=== PATIENT | male | born 1945 ===

== ENCOUNTER → 2017-10-02 | Outpatient (CLI) | payer MEDICARE | END | disposition home or self-care (01) | LOC: PCVCCLINIC 12:00 | DX: I25.10 Atherosclerotic heart disease of native coronary artery without angina pectoris (principal); E11.9 Type 2 diabetes mellitus without complications; R07.9 Chest pain, unspecified; I10 Essential (primary) hypertension; E78.5 Hyperlipidemia, unspecified; Z95.1 Presence of aortocoronary bypass graft; Z79.82 Long term (current) use of aspirin; Z79.84 Long term (current) use of oral hypoglycemic drugs | CPT/HCPCS: 80061; 93005; G0463 ==

== ENCOUNTER → 2017-10-29 | Outpatient (CLI) | payer MEDICARE ==
[~2017-10-29] MED LIST: REGADENOSON 0.4 MG/5 ML DISP.SYRIN. IV ONE
--- NOTE | 2017-10-29 11:16 | PCVCIMAG ---
APPROVED REPORT Study performed: 10/29/2017 08:52:53 EXAM: Comprehensive 2D, Doppler, and color-flow Echocardiogram Patient Location: Echo lab Status: routine BSA: 2.00 HR: 72 bpmBP: 124/74 mmHg Rhythm: NSR Other Information Study Quality: Good Risk Factors: Cardiac Risk Factors: HTN, Hyperlipidemia Indications CAD Chest Pain Hx CABG (2012) 2D Dimensions LVEF(%): 57.00 (>50%) IVSd: 11.09 (7-11mm)LVOT Diam: 22.00 (18-24mm) LVDd: 47.25 mm PWd: 10.90 (7-11mm)Ascending Ao: 33.42 (22-36mm) LVDs: 29.91 (25-40mm) Aortic Root: 29.16 mm LV Single Plane 4CH: 57.25 % LV Single Plane 2CH: 49.79 %Grey's LVEF: 53.52 % Biplane EF: 54.4 % Volumes Left Atrial Volume (Systole) Single Plane 4CH: 47.78 mLSingle Plane 2CH: 30.94 mL LA ESV Index: 19.00 mL/m2 Aortic Valve AoV Peak Joon.: 1.29 m/s AO Peak Gr.: 6.68 mmHgLVOT Max P.03 mmHg LVOT Max V: 1.00 m/s BRUCE Vmax: 2.83 cm2 Mitral Valve E/A Ratio: 1.1 MV Decel. Time: 187.00 ms MV E Max Joon.: 0.88 m/s MV A Joon.: 0.78 m/s IVRT: 62.28 ms TDI E/Lateral E': 11.00E/Medial E': 17.60 Medial E' Joon.: 0.05 m/s Lateral E' Joon.: 0.08 m/s Pulmonary Valve PV Peak Joon.: 1.13 m/sPV Peak Gr.: 5.14 mmHg NH End Vmax: 0.98 m/s Pulmonary Vein P Vein S: 0.61 m/sP Vein A: 0.30 m/s P Vein D: 0.56 m/sP Vein A Dur.: 114.2 msec P Vein S/D Ratio: 1.09 Tricuspid Valve TR Peak Joon.: 2.66 m/sRAP Estimate: 7.00 mmHg TR Peak Gr.: 28.38 mmHg PA Pressure: 35.00 mmHg Left Ventricle The left ventricle is normal size. There is normal LV segmental wall motion. Borderline concentric left ventricular hypertrophy. Left ventricular systolic function is normal. The left ventricular ejection fraction is within the normal range. LVEF is 50-55%. Grade II - pseudonormal filling dynamics. Right Ventricle The right ventricle is normal size. The right ventricular systolic function is normal. Atria The left atrium size is normal. The right atrium size is normal. Aortic Valve The aortic valve is normal in structure. Trace aortic regurgitation. There is no aortic valvular stenosis. Mitral Valve The mitral valve is normal in structure. Mild mitral regurgitation. No evidence of mitral valve stenosis. Tricuspid Valve The tricuspid valve is normal in structure. Trace tricuspid regurgitation. Pulmonary artery pressure is 35 mmHg. Pulmonic Valve The pulmonary valve is normal in structure. Mild pulmonic regurgitation. Great Vessels The aortic root is normal in size. IVC is normal in size and collapses >50% with inspiration. Pericardium There is no pericardial effusion. <Conclusion> The left ventricle is normal size. Borderline concentric left ventricular hypertrophy. LVEF is 50-55%. Grade II - pseudonormal filling dynamics. The right ventricle is normal size. The left atrium size is normal. The aortic valve is normal in structure. Mild mitral regurgitation. Trace tricuspid regurgitation. Pulmonary artery pressure is 35 mmHg. The aortic root is normal in size. There is no pericardial effusion.
== END | disposition home or self-care (01) ==
LOC: PCVCIMAG 13:41
PROVIDERS: ATTEND Internal Medicine Cardiovascular Disease
DX: I05.1 Rheumatic mitral insufficiency (principal); I25.10 Atherosclerotic heart disease of native coronary artery without angina pectoris; E11.9 Type 2 diabetes mellitus without complications; I10 Essential (primary) hypertension
CPT/HCPCS: 78452; 93017; 93306; A9500; J2785

== ENCOUNTER → 2018-07-15 | Outpatient (CLI) | payer MEDICARE | END | disposition home or self-care (01) | LOC: PCVCCLINIC 14:00 | PROVIDERS: ATTEND Internal Medicine Cardiovascular Disease | DX: I25.810 Atherosclerosis of coronary artery bypass graft(s) without angina pectoris (principal); I10 Essential (primary) hypertension; I65.23 Occlusion and stenosis of bilateral carotid arteries; E78.00 Pure hypercholesterolemia, unspecified; E11.9 Type 2 diabetes mellitus without complications; M19.90 Unspecified osteoarthritis, unspecified site; E78.5 Hyperlipidemia, unspecified; R94.31 Abnormal electrocardiogram [ECG] [EKG]; Z79.82 Long term (current) use of aspirin; Z79.899 Other long term (current) drug therapy | CPT/HCPCS: 36415; 80061; 93005; G0463 ==